=== PATIENT | male | born 1995 | race African-American/Black ===

== ENCOUNTER 2019-05-03 14:27 | Emergency (ER) | payer OTHER ==
[2019-05-03 14:39] VITALS: BP 126/63; PULSE 71; TEMP 98.3; BMI 266.2
--- NOTE | 2019-05-03 15:03 | PDOC ---
History of Present Illness - General Chief Complaint: Sore Throat Stated Complaint: SORE THROAT Time Seen by Provider: 05/03/19 14:44 - History of Present Illness Initial Comments: 05/03/19 14:57 23 y/o M with sore throat x3 days without systemic symptoms Past History - Past Medical History Allergies/Adverse Reactions: Allergies Allergy/AdvReac Type Severity Reaction Status Date / Time No Known Allergies Allergy Verified 09/11/15 18:36 Home Medications: Ambulatory Orders Sumatriptan Succinate [Imitrex] 50 mg PO DAILY PRN #14 tablet 09/13/15 COPD: No - Immunization History Immunization Up to Date: Yes - Suicide/Smoking/Psychosocial Hx Smoking Status: No Smoking History: Never smoked Have you smoked in the past 12 months: No Number of Cigarettes Smoked Daily: 0 Information on smoking cessation initiated: No Hx Alcohol Use: No Drug/Substance Use Hx: No Substance Use Type: None Review of Systems - Review of Systems Constitutional: No: Fever HEENTM: Yes: Throat Pain. No: Throat Swelling, Difficulty Swallowing *Physical Exam - Vital Signs Last Vital Signs Temp Pulse Resp BP Pulse Ox 98.3 F 71 16 126/63 98 05/03/19 14:37 05/03/19 14:37 05/03/19 14:37 05/03/19 14:37 05/03/19 14:37 - Physical Exam Comments: 05/03/19 14:59 HEAD: NC/AT EYES: Conjuntiva clear Ears: Canals and TM's normal NOSE: No d/c THROAT: Moist mucous membrances, oral pharanx clear, uvula midline NECK: Supple without adenopathy CARDIAC: S1 S2 LUNGS: CTA Full and Equal breath sounds ABDOMEN: Soft NT ND MS: Full ROM in all joints without edema NEUROLOGIC: No gross sensory or motor deficits, NVID SKIN: Normal color and temperature no lesions or rashes Medical Decision Making - Medical Decision Making 05/03/19 14:59 benign examination, nost likely a viral pharingitis *DC/Admit/Observation/Transfer Diagnosis at time of Disposition: Viral pharyngitis - Discharge Dispostion Disposition: HOME Condition at time of disposition: Stable Decision to Admit order: No - Referrals Referrals: Cody Pollack MD [Staff Physician] - - Patient Instructions Printed Discharge Instructions: Viral Pharyngitis, DI for Viral Pharyngitis Additional Instructions: Your rapid strep today was negative, you may take tylenol and motrin as directed for pain, warm salt water garggles for pain multiple times a day about 5-6 times per day, Follow up with your doctor in 1-2 days without fail and return to the emergency room for worsening symptoms. - Post Discharge Activity
== END 2019-05-03 15:28 | disposition home or self-care (01) ==
LOC: JERFT 14:27
DX: J02.9 Acute pharyngitis, unspecified (principal); B97.89 Other viral agents as the cause of diseases classified elsewhere
CPT/HCPCS: 87070; 87077; 87880; 99281-25

== ENCOUNTER 2019-06-30 17:58 | Emergency (ER) | payer OTHER ==
[2019-06-30 18:08] VITALS: BP 124/72; PULSE 99; TEMP 98.2
--- NOTE | 2019-06-30 18:08 | PDOC ---
Rapid Medical Evaluation Time Seen by Provider: 06/30/19 18:06 Medical Evaluation: Allergies Allergy/AdvReac Type Severity Reaction Status Date / Time No Known Allergies Allergy Verified 06/30/19 18:04 06/30/19 18:06 I have performed a brief in-person evaluation of this patient. The patient presents with a chief complaint of: (+)PPD during routine check up, needs CXR. No complaints at this time. NO recent travel, no h/o positive PPD, came to the [place] 15[place] ago. I have ordered the following: CXR The patient will proceed to the ED for further evaluation. Discharge Disposition - Diagnosis Positive PPD - Referrals - Patient Instructions - Post Discharge Activity
--- NOTE | 2019-06-30 19:08 | PDOC ---
History of Present Illness - General Chief Complaint: Xray Stated Complaint: X-RAY Time Seen by Provider: 06/30/19 18:06 - History of Present Illness Initial Comments: 06/30/19 19:06 23-year-old male with a past medical history of hallucinations presents for evaluation of a positive PPD sent to the ER by his primary care doctor's office. Past History - Past Medical History Allergies/Adverse Reactions: Allergies Allergy/AdvReac Type Severity Reaction Status Date / Time No Known Allergies Allergy Verified 06/30/19 18:04 Home Medications: Ambulatory Orders Sumatriptan Succinate [Imitrex] 50 mg PO DAILY PRN #14 tablet 09/13/15 COPD: Yes - Immunization History Immunization Up to Date: Yes - Psycho Social/Smoking Cessation Hx Smoking Status: No Smoking History: Never smoked Have you smoked in the past 12 months: No Number of Cigarettes Smoked Daily: 0 Information on smoking cessation initiated: No Hx Alcohol Use: No Drug/Substance Use Hx: No Substance Use Type: None Review of Systems - Review of Systems Constitutional: No: Fever Respiratory: No: Cough *Physical Exam - Vital Signs Last Vital Signs Temp Pulse Resp BP Pulse Ox 98.2 F 99 H 18 124/72 98 06/30/19 18:04 06/30/19 18:04 06/30/19 18:04 06/30/19 18:04 06/30/19 18:04 - Physical Exam Comments: 06/30/19 19:07 HEAD: NC/AT EYES: Conjuntiva clear NECK: Supple without adenopathy CARDIAC: S1 S2 LUNGS: CTA Full and Equal breath sounds MS: Full ROM in all joints without edema NEUROLOGIC: No gross sensory or motor deficits, NVID SKIN: Normal color and temperature no lesions or rashes Medical Decision Making - Medical Decision Making 06/30/19 19:07 Chest x-ray clear follow-up with PCP Discharge - Discharge Information Problems reviewed: Yes Clinical Impression/Diagnosis: Positive PPD, Normal chest x-ray Condition: Stable Disposition: HOME - Admission No - Follow up/Referral - Patient Discharge Instructions Additional Instructions: Return to your primary care doctor in 1 to 2 days for further evaluation and treatment options without fail. Your chest x-ray was normal today. - Post Discharge Activity
== END 2019-06-30 19:11 | disposition home or self-care (01) ==
LOC: JERFT 17:58
DX: Z00.00 Encounter for general adult medical examination without abnormal findings (principal); R76.11 Nonspecific reaction to tuberculin skin test without active tuberculosis
CPT/HCPCS: 71046-TC-FY; 99281-25

== ENCOUNTER 2022-09-11 14:42 | Emergency (ER) | payer OTHER ==
[2022-09-11 14:54] VITALS: BP 114/53; PULSE 94; RESP 20; TEMP 98.9; BMI 27.1
[2022-09-11] MEDS ORDERED: IBUPROFEN 600 MG TABLET (FP) PO ONE ×2 (15:54→15:56)
[2022-09-11] MEDS ORDERED: ACETAMINOPHEN 325 MG TABLET (FP) PO ONE (15:54)
[2022-09-11] MEDS ORDERED: ACETAMINOPHEN 325 MG TABLET (FP) ONE (15:56)
== END 2022-09-11 16:35 | disposition home or self-care (01) ==
LOC: JERFT 14:42
DX: R68.84 Jaw pain (principal)
CPT/HCPCS: 99283-25

== ENCOUNTER 2024-11-03 18:10 | Emergency (ER) | payer OTHER ==
[2024-11-03 18:23] VITALS: BP 123/61; PULSE 81; RESP 20; TEMP 98.2; BMI 36.6
== END 2024-11-03 21:47 | disposition home or self-care (01) ==
LOC: JER 18:10
DX: N50.819 Testicular pain, unspecified (principal); N50.82 Scrotal pain
CPT/HCPCS: 93005; 93010; 99283-25